=== PATIENT | male | born 1985 | race Caucasian/White ===

== ENCOUNTER 2018-09-20 10:42 | Inpatient (IN) | payer BC ==
[~2018-09-20] VITALS: Ht 180.3 cm; Wt 90.9 kg
[2018-09-20] MEDS ORDERED: COZAAR100 MG PO (10:51)
[2018-09-20 11:51] VITALS: BP 132/90
[2018-09-20 12:56] LABS: CKMB 0.7 U/L (0.0-3.6); CREATINE KINASE 127 UL (21-232); MAGNESIUM - SERUM 2.1 mg/dL (1.8-2.4); TROPONIN-I < 0.017 ng/mL (0.000-0.060)
[2018-09-20 13:10] LABS: APPEARANCE CLEAR (CLEAR); BILIRUBIN NEGATIVE (NEGATIVE); COLOR STRAW (YELLOW); GLUCOSE NEGATIVE (NEGATIVE); KETONE NEGATIVE (NEGATIVE); NITRITE NEGATIVE (NEGATIVE); PROTEIN NEGATIVE (NEGATIVE); SPECIFIC GRAVITY 1.005 (1.005-1.020)
[2018-09-20 13:19] LABS: UDS - AMPHET NEGATIVE QUAL (NEGATIVE); UDS - BARB NEGATIVE QUAL (NEGATIVE); UDS - BENZO NEGATIVE QUAL (NEGATIVE); UDS - COCAINE NEGATIVE QUAL (NEGATIVE); UDS - OPIATE NEGATIVE QUAL (NEGATIVE); UDS - PCP NEGATIVE QUAL (NEGATIVE); UDS - THC NEGATIVE QUAL (NEGATIVE)
--- NOTE | 2018-09-20 13:31 | MORECARE ---
CASE MANAGEMENT DISCHARGE SUMMARY PATIENT: DONNIE MILES UNIT: [id number] ADM DATE: 09/20/18 AGE: 33 : 81 SEX: M ROOM/BED: D.E14 AUTHOR: AGATHA ALVA PHYSICIAN: REFERRING PHYSICIAN: ROX MORRISON MD DATE OF SERVICE: 09/20/18 Discharge Plan Patient Name: DONNIE MILES [facility] [facility] 1985 Planned Disposition: Anticipated Discharge Date: Discharge Date: Expected LOS: Initial Reviewer: [email or web address] Initial Review Date: 09/20/2018 Generated: 09/20/18 2:31 pm Patient Name: DONNIE MILES Page [id number] at 1331 All edits/amendments must be made on the electronic document DICTATION DATE: 09/20/18 1330 EARLY HEAD START TEACHER: JIM 09/20/18 1330 RPT#: [id number] DC DATE: STATUS: ADM IN [facility] [address] [place] [address] END OF REPORT
--- NOTE | 2018-09-20 14:12 | NUR ---
PT RECEIVED LOVENOX INJECTION AT [facility] PRIOR TO TRANSFER TO [facility].
[2018-09-20 14:33] LABS: BASOPHILS 0.3 % (0-2); EOSINOPHILS 0.6 % (0-7); HEMATOCRIT 48.4 % (42.0-54.0); IMMATURE GRANULOCYTES 0.1 % (0-5); LYMPHOCYTES 24.6 % (15-50); MCH 30.9 pg (26.0-34.0); MCHC 35.1 g/dL (31.0-37.0); MCV 87.8 fL (80.0-100.0); MEAN PLATELET VOLUME 11.7 fL (7.4-10.4); MONOCYTES 5.8 % (2-11); NEUTROPHILS 68.6 % (40-80); PLATELET COUNT 163 10x3/uL (130-400); RBC 5.51 10x6/uL (4.20-6.10); RDW 13.1 % (11.5-14.5)
[2018-09-20 14:38] LABS: ALBUMIN 4.5 g/dL (3.4-5.0); ALKALINE PHOSPHATASE 81 U/L (46-116); ALT (SGPT) 27 U/L (10-68); BILIRUBIN - TOTAL 1.16 mg/dL (0.2-1.3); CALC OSMOLALITY 283 mosm/kg (275-300); CALCIUM 9.3 mg/dL (8.5-10.1); CARBON DIOXIDE 21.3 mmol/L (21.0-32.0); CHLORIDE - SERUM 104 mmol/L (98-107); CREATININE - SERUM 0.9 mg/dL (0.6-1.3); GLUCOSE 132 mg/dL (74-106); POTASSIUM - SERUM 3.6 mmol/L (3.5-5.1); PROTEIN - SERUM 7.9 g/dL (6.4-8.2); SODIUM 141 mmol/L (136-145); T4 THYROXIN - FREE 1.16 ng/dL (0.76-1.46); THYROID STIMULATING HORMONE 1.27 uIU/mL (0.36-3.74); UREA NITROGEN 14 mg/dL (7-18); eGFR NON AFRICAN AMERICAN > 90 mL/min (90-120)
--- NOTE | 2018-09-20 15:31 | NUR ---
TRANSFER FROM ER BY W/C. SHERRYINTED TO ROOM. CALL LIGHT IN REACH. WILL CONT. PLAN OF CARE.
[2018-09-20 16:00] VITALS: BP 123/79; Ht 180.3 cm; Wt 90.9 kg
--- NOTE | 2018-09-20 19:33 | NUR ---
RESUMED CARE OF PT, LYING IN BED RESPIRATIONS EVEN AND UNLABORED ON ROOM AIR. 76 CAF ON TELEMETRY. RIGHT FOREARM INFUSING CARDIZEM @ 5. TYLENOL 650 GIVEN FOR HEADACHE 4:10. CALL LIGHT IN REACH. WILL CONTINUE TO MONITOR. SEE NURSE ASSESSMENT.
[2018-09-20 20:54] VITALS: BP 108/74
[2018-09-21] VITALS: BP 100/57
[2018-09-21 05:08] VITALS: BP 100/63
[2018-09-21 06:03] LABS: BASOPHILS 0.4 % (0-2); HEMATOCRIT 46.2 % (42.0-54.0); HEMOGLOBIN 15.9 g/dL (13.5-17.5); IMMATURE GRANULOCYTES 0.1 % (0-5); LYMPHOCYTES 40.1 % (15-50); MCH 30.6 pg (26.0-34.0); MCHC 34.4 g/dL (31.0-37.0); MCV 88.8 fL (80.0-100.0); MONOCYTES 5.3 % (2-11); NEUTROPHILS 52.1 % (40-80); PLATELET COUNT 163 10x3/uL (130-400); RDW 13.4 % (11.5-14.5); WBC 7.6 10x3/uL (4.8-10.8)
[2018-09-21 06:28] LABS: CALC OSMOLALITY 286 mosm/kg (275-300); CALCIUM 8.9 mg/dL (8.5-10.1); CHLORIDE - SERUM 105 mmol/L (98-107); CKMB 0.3 U/L (0.0-3.6); CREATINE KINASE 86 UL (21-232); GLUCOSE 103 mg/dL (74-106); MAGNESIUM - SERUM 2.1 mg/dL (1.8-2.4); POTASSIUM - SERUM 3.8 mmol/L (3.5-5.1); SODIUM 143 mmol/L (136-145); TROPONIN-I < 0.017 ng/mL (0.000-0.060); UREA NITROGEN 17 mg/dL (7-18)
[2018-09-21 06:33] LABS: CARBON DIOXIDE 30.5 mmol/L (21.0-32.0); CREATININE - SERUM 1.2 mg/dL (0.6-1.3); eGFR NON AFRICAN AMERICAN 73 mL/min (90-120)
--- NOTE | 2018-09-21 06:52 | NUR ---
NO CHANGES FROM PREVIOUS ASSESSMENT, 67 CAF ON TELEMETRY. CALL LIGHT IN REACH.
[2018-09-21 09:08] VITALS: BP 103/53
[2018-09-21 09:53] LABS: T4 THYROXIN - FREE 1.21 ng/dL (0.76-1.46); THYROID STIMULATING HORMONE 1.59 uIU/mL (0.36-3.74)
--- NOTE | 2018-09-21 10:56 | NUR ---
RESTING QUIETLY NAD NOTED
[2018-09-21 12:48] VITALS: BP 107/70
[2018-09-21] MEDS ORDERED: HYDROCHLOROTH12.5 M1 PO (15:02)
[2018-09-21 16:40] VITALS: BP 114/64
[2018-09-21 20:00] VITALS: BP 122/76
--- NOTE | 2018-09-21 20:10 | NUR ---
RESUMED CARE OF PT, LYING IN BED RESPIRATIONS EVEN AND UNLABORED ON ROOM AIR. 65 SR ON TELEMETRY. PLAN OF CARE DISCUSSED. RIGHT FOREARM SALINE LOCKED. NO NEEDS VOICED AT THIS TIME, WILL CONTINUE TO MONITOR. SEE NURSE ASSESSMENT.
[2018-09-22] VITALS: BP 100/58
[2018-09-22 04:00] VITALS: BP 117/59
[2018-09-22] MEDS ORDERED: XARELTO20 MG PO (10:46)
[2018-09-22] MEDS ORDERED: COZAAR25 MG PO (10:46)
[2018-09-22] MEDS ORDERED: BETAPACE 80 MG80 MG PO (10:47)
--- NOTE | 2018-09-22 14:20 | NUR ---
REVIEWED DISCHARGE INSTRUCTIONS WITH PT STATES UNDERSTANDING COPY GIVEN SALINE LOCK DCD TO RFA WITH IV CATHETER INTACT SITE FREE OF REDNESS OR EDEMA PT DISCHARGED HOME LEFT UNIT VIA W/C IN STABLE CONDITION WITH ALL PERSONAL BELONGINGS
--- NOTE | 2018-09-22 18:03 | MORECARE ---
CASE MANAGEMENT DISCHARGE SUMMARY PATIENT: DONNIE MILES UNIT: [id number] ADM DATE: 09/20/18 AGE: 33 : 81 SEX: M ROOM/BED: D.2114 AUTHOR: NIDA,DOC PHYSICIAN: REFERRING PHYSICIAN: ROX MORRISON MD DATE OF SERVICE: 09/22/18 Discharge Plan Patient Name: DONNIE MILES Facility: [facility]:[place] : 1985 Planned Disposition: Home Anticipated Discharge Date: 09/22/18 Discharge Date: 09/22/2018 Expected LOS: 2 Initial Reviewer: [email or web address] Initial Review Date: 09/20/2018 Generated: 09/22/18 7:02 pm Comments DCP- Discharge Planning Updated by [email or web address]: Malcolm Snaabria on 09/22/18 4:[address] Patient Name: DONNIE MILES Admission Status: ER Accout number: [id number] Admission Date: 09-20-2018 : 1985 Admission Diagnosis:UNSPECIFIED ATRIAL FIBRILLATION Attending: ROX MORRISON Current LOS: 2 Anticipated DC Date: 09-22-2018 Planned Disposition: Home Primary Insurance: [employer] BLUE PPO Discharge Planning Comments: CM MET WITH PT IN ROOM TO DISCUSS DISCHARGE PLANNING AND NEEDS. PT REPORTS LIVING AT HOME INDEPENDENTLY WITH SPOUSE. PT HAS NO MEDICAL EQUIPMENT AND NO OUTSIDE SERVICES ASSISTING IN THE HOME. CM DISCUSSED AVAILABILITY OF HOME HEALTH, REHAB SERVICES AND MEDICAL EQUIPMENT. PT DENIES DISCHARGE NEEDS, REPORTS HIS WILL PICK HIM UP FOR DISCHARGE HOME. [employer]: Malcolm Sanabria DCPIA - Discharge Planning Initial Assessment Updated by [email or web address]: Malcolm aSnabria on 09/22/18 5:55 pm * Is the patient Alert and Oriented? Yes * How many steps to enter\exit or inside your home? * PCP DR. RODRIGUEZ IN [place] * Pharmacy [facility] * Preadmission Environment Home with Family * ADLs Independent * Equipment None * Other Equipment NO MEDICAL EQUIPMENT PROVIDER PREFERNECE * List name and contact numbers for known caregivers / representatives who currently or will assist patient after discharge: MARCUS MILES, SPOUSE, * Verbal permission to speak to the caregivers and representatives has been obtained from the patient. Yes * Community resources currently utilized None * Please name any agencies selected above. NONE * Additional services required to return to the preadmission environment? No * Can the patient safely return to the preadmission environment? Yes * Has this patient been hospitalized within the prior 30 days at any hospital? No Last DP export: 09/20/18 12:31 pm Patient Name: DONNIE MILES Page [phone] at 1803 All edits/amendments must be made on the electronic document DICTATION DATE: 09/22/181801 RECORD TABULATING CLERK: JIM 09/22/181801 RPT#: [id number] DC DATE:09/22/18 STATUS: DIS IN [facility] [address] [place] [address] END OF REPORT
== END 2018-09-22 14:20 | disposition home or self-care (01) | DRG 310 ==
LOC: D.ER 10:42 → D.M2 12:49 → D.EDHOLD 12:49 → D.M2 14:44
PROVIDERS: Family Medicine; Internal Medicine Cardiovascular Disease; ADMIT Internal Medicine Nephrology
DX: I48.91 Unspecified atrial fibrillation (principal); I10 Essential (primary) hypertension